=== PATIENT | female | born 1985 | race Caucasian/White ===

== ENCOUNTER 2023-06-15 02:50 | Emergency (ER) | payer OTHER, SELFPAY ==
[2023-06-15 02:56] VITALS: BP 137/79; PULSE 97; RESP 18; TEMP 36.2; O2SAT 98; BMI 30.7
--- NOTE | 2023-06-15 03:01 | ED_ITS ---
HPI - Abdominal Pain General Date Seen: 06/15/23 <Tyler Aponte - Last Filed: 06/16/23 09:49> Chief Complaint: Abdominal Pain <Tyler Aponte DO - Last Filed: 06/16/23 09:49> Stated Complaint: right side abdominal pain <Tyler Aponte - Last Filed: 06/16/23 09:49> Time Seen by Provider: 06/15/23 02:52 <Tyler Aponte - Last Filed: 06/16/23 09:49> Source: patient <Tyler Aponte - Last Filed: 06/16/23 09:49> Mode of arrival: ambulatory <Tyler Aponte - Last Filed: 06/16/23 09:49> Limitations: no limitations <Tyler Aponte - Last Filed: 06/16/23 09:49> History of Present Illness HPI narrative: Patient is a 38-year-old female with no pertinent medical problems presenting to emergency department for right-sided abdominal pain. She says this pain started few hours ago. She went to bed about 23:00 in no she is having this right-sided abdominal pain that was not going away. She notices it worse in the right lower quadrant but states it hurts throughout her right abdomen. She states she had pain like this 2 months ago and it also occurred overnight but was better by morning. She states last ate at about 20:30 and had no issues at that time. Has some mild nausea but no vomiting. Has had previous C-sections but no other abdominal surgery. Denies fevers, chills, chest pain, shortness of breath, diarrhea, constipation, lightheadedness, dizziness, d ysuria. Her last bowel movement was in the morning and she thinks it was normal. Did take ibuprofen for pain with improvement in her symptoms. No other concerns noted <Tyler Aponte - Last Filed: 06/16/23 09:49> Related Data Home Medications: Home Medications Medication Instructions Recorded Confirmed sertraline 25 mg tablet 25 mg PO DAILY 06/15/23 06/15/23 <Tyler Aponte - Last Filed: 06/16/23 09:49> Allergies/Adverse Reactions: Allergies Allergy/AdvReac Type Severity Reaction Status Date / Time No Known Drug Allergies Allergy Verified 06/15/23 03:03 <Tyler Aponte DO - Last Filed: 06/16/23 09:49> Review of Systems Status of ROS Reports: 10 or more systems reviewed and unremarkable except as noted in History and below <Tyler Aponte DO - Last Filed: 06/16/23 09:49> [facility] Medical History: Medical History No significant past medical history <Tyler Aponte DO - Last Filed: 06/16/23 09:49> Surgical History: Surgical History Hx of section ?Z98.891 - History of uterine scar from previous surgery (ICD-10) <Tyler Aponte DO - Last Filed: 06/16/23 09:49> Social History: Social History (Updated 06/15/23 @ 16:26 by Yue Alcocer MD) Narrative: 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 Smoking Status: Never smoker Second hand tobacco smoke exposure: No How often do you have a drink containing alcohol: never AUDIT-C Alcohol total score: 0 Non-prescribed substance use: denies use <Tyler Aponte DO - Last Filed: 06/16/23 09:49> Exam Narrative: Exam Narrative: Const: Well-nourished, Well-developed, in mild distress Eyes: PERRL, no conjunctival injection, and symmetrical lids HENT: Atraumatic external nose and ears. Moist mucous membranes. Neck: Symmetric, trachea midline, No thyromegaly. CVS: RRR, No murmurs or gallops. Peripheral pulses 2+ and equal in all extremities RESP: Unlabored respiratory effort. Clear to auscultation bilaterally. GI: Right lower quadrant tenderness, Nondistended, No rebound or guarding. MSK:Extremities w/o deformity, Normal Active ROM Skin: Warm, Dry. No rashes or lesions. Neuro: Normal Muscle tone, No focal neurological deficits. Psych: Awake, Alert, & Oriented x3. Appropriate mood and affect. <Tyler Aponte DO - Last Filed: 06/16/23 09:49> Const: Vital Signs, click to edit/add: Vital Signs - 24 hr 06/15/23 02:56 06/15/23 03:15 06/15/23 03:52 Temperature 97.1 F L 98.1 F Pulse Rate [Pulse Oximeter] 97 67 Respiratory Rate 18 18 Blood Pressure [Ri ght Upper Arm] 137/79 125/63 Pulse Oximetry 98 98 98 Oxygen Delivery Me thod Room Air Room Air 06/15/23 05:10 06/15/23 06:28 06/15/23 08:30 Temperature 98.1 F 98.1 F 98.3 F Pulse Rate [Pulse Oximeter] 71 66 62 Respiratory Rate 18 18 18 Blood Pressure [Ri ght Upper Arm] 119/79 113/68 110/68 Pulse Oximetry 98 98 99 Oxygen Delivery Me thod Room Air Room Air Room Air <Tyler Apnote DO - Last Filed: 06/16/23 09:49> Vital Signs, click to edit/add: Vital Signs - 24 hr 06/15/23 02:56 06/15/23 03:15 06/15/23 03:52 Temperature 97.1 F L 98.1 F Pulse Rate [Pulse Oximeter] 97 67 Respiratory Rate 18 18 Blood Pressure [Ri ght Upper Arm] 137/79 125/63 Pulse Oximetry 98 98 98 Oxygen Delivery Me thod Room Air Room Air 06/15/23 05:10 06/15/23 06:28 06/15/23 08:30 Temperature 98.1 F 98.1 F 98.3 F Pulse Rate [Pulse Oximeter] 71 66 62 Respiratory Rate 18 18 18 Blood Pressure [Ri ght Upper Arm] 119/79 113/68 110/68 Pulse Oximetry 98 98 99 Oxygen Delivery Me thod Room Air Room Air Room Air <Latisha Goddard MD - Last Filed: 06/15/23 10:32> Course Course ED Course: Patient signed out to me by Dr. Aponte. I spoke with Dr. Alcocer, who will come assess the patient and formulate a plan with her when she finishes her current case, probably around 9:30. Patient comfortable, declines the need for anything for pain. Per Dr. Alcocer patient will be discharged home, return to Same Day Surgery tomorrow AM 9:15. Return to the ER for significant worsening in the interim, high fevers, shaking chills, severe uncontrolled pain. <Latisha Goddard MD - Last Filed: 06/15/23 10:32> Vital Signs Vital signs: Initial Vital Signs Temperature 97.1 F L 06/15/23 02:56 Temperature Source Temporal Artery Scan 06/15/23 02:56 Pulse Rate 97 06/15/23 02:56 Respiratory Rate 18 06/15/23 02:56 Blood Pressure 137/79 06/15/23 02:56 Blood Pressure Mean 98 06/15/23 02:56 Blood Pressure Position Sitting 06/15/23 02:56 Pulse Oximetry 98 06/15/23 02:56 Oxygen Delivery Method Room Air 06/15/23 02:56 Vital Signs Temperature 97.1 F L 06/15/23 02:56 Pulse Rate 97 06/15/23 02:56 Respiratory Rate 18 06/15/23 02:56 Blood Pressure 137/79 06/15/23 02:56 Pulse Oximetry 98 06/15/23 02:56 Oxygen Delivery Method Room Air 06/15/23 02:56 Temperature 98.3 F 06/15/23 08:30 Pulse Rate 62 06/15/23 08:30 Respiratory Rate 18 06/15/23 08:30 Blood Pressure 110/68 06/15/23 08:30 Pulse Oximetry 99 06/15/23 08:30 Oxygen Delivery Method Room Air 06/15/23 08:30 <Tyler Aponte DO - Last Filed: 06/16/23 09:49> Initial Vital Signs Temperature 97.1 F L 06/15/23 02:56 Temperature Source Temporal Artery Scan 06/15/23 02:56 Pulse Rate 97 06/15/23 02:56 Respiratory Rate 18 06/15/23 02:56 Blood Pressure 137/79 06/15/23 02:56 Blood Pressure Mean 98 06/15/23 02:56 Blood Pressure Position Sitting 06/15/23 02:56 Pulse Oximetry 98 06/15/23 02:56 Oxygen Delivery Method Room Air 06/15/23 02:56 Vital Signs Temperature 97.1 F L 06/15/23 02:56 Pulse Rate 97 06/15/23 02:56 Respiratory Rate 18 06/15/23 02:56 Blood Pressure 137/79 06/15/23 02:56 Pulse Oximetry 98 06/15/23 02:56 Oxygen Delivery Method Room Air 06/15/23 02:56 Temperature 98.3 F 06/15/23 08:30 Pulse Rate 62 06/15/23 08:30 Respiratory Rate 18 06/15/23 08:30 Blood Pressure 110/68 06/15/23 08:30 Pulse Oximetry 99 06/15/23 08:30 Oxygen Delivery Method Room Air 06/15/23 08:30 <Latisha Goddard MD - Last Filed: 06/15/23 10:32> Medications Administered Medications: Discontinued Medications Generic Name Dose Route Start Last Admin Trade Name Freq PRN Reason Stop Dose Admin Metronidazole 500 mg in 100 mls @ 100 mls/hr 06/15/23 04:12 06/15/23 06:31 Metronidazole IVPB 06/15/23 05:11 Infused ONCE ONE Infusion Ceftriaxone Sodium 1 gm/ 100 mls @ 200 mls/hr 06/15/23 04:15 06/15/23 04:50 Sodium Chloride IVPB Infused Q24H MICHELLE Infusion Morphine Sulfate 4 mg 06/15/23 03:06 06/15/23 03:14 Morphine 4 Mg/Ml Inj IVP 06/15/23 03:07 4 mg ONCE ONE Administration Ondansetron HCl 4 mg 06/15/23 03:29 06/15/23 03:12 Ondansetron 2 Mg/Ml Inj IVP 06/15/23 03:30 4 mg ONCE ONE Administration <Tyler Aponte DO - Last Filed: 06/16/23 09:49> Discontinued Medications Generic Name Dose Route Start Last Admin Trade Name Freq PRN Reason Stop Dose Admin Metronidazole 500 mg in 100 mls @ 100 mls/hr 06/15/23 04:12 06/15/23 06:31 Metronidazole IVPB 06/15/23 05:11 Infused ONCE ONE Infusion Ceftriaxone Sodium 1 gm/ 100 mls @ 200 mls/hr 06/15/23 04:15 06/15/23 04:50 Sodium Chloride IVPB Infused Q24H MICHELLE Infusion Morphine Sulfate 4 mg 06/15/23 03:06 06/15/23 03:14 Morphine 4 Mg/Ml Inj IVP 06/15/23 03:07 4 mg ONCE ONE Administration Ondansetron HCl 4 mg 06/15/23 03:29 06/15/23 03:12 Ondansetron 2 Mg/Ml Inj IVP 06/15/23 03:30 4 mg ONCE ONE Administration <Latisha Goddard MD - Last Filed: 06/15/23 10:32> MDM - Abdominal Pain MDM Narrative Medical decision making narrative: Patient is a 38-year-old female presenting for right-sided abdominal pain. No shortness seems to be in the right lower quadrant I am concerned about appendicitis right now. She does state her entire abdomen is sore though so there is concern for SBO considered she has had a before, gallbladder disease, pancreatitis, viral gastroenteritis. Will order CBC, CMP, lipase, urinalysis, urine test. We will do CT scan with IV contrast to better evaluate this pain. She does have a pulse of 97 which is within SIRS criteria and will preemptively order a lactate. Lab work all returned showing no concerning abnormalities. Her symptoms have improved at this time. CT scan returned showing concerns for cholecystitis. Due to the relatively low specificity and sensitivity of CT scan for cholecystitis we will order an ultrasound. Ultrasound will be done at 06:30. P ana is otherwise appearing well at this time and can wait till then. They would not do surgery sooner any ways. Will be given a round of Flagyl and Rocephin for possible infection in the meantime. She is agreeable to wait for the ultrasound. Gallbladder ultrasound shows cholelithiasis with some mild gallbladder wall thickening. <Tyler Aponte DO - Last Filed: 06/16/23 09:49> Lab Data Labs: Lab Results 06/15/23 06/15/23 Range/Units 02:56 03:00 WBC 11.58 H (4.50-11.00) K/uL RBC 4.64 (4.00-5.20) m/uL Hgb 13.4 (12.0-16.0) gm/dL Hct 40.7 (33.0-51.0) % MCV 88 (80-100) fL MCH 29 (26-34) pg MCHC 33 (32-36) gm/dL RDW Coeff of Deanna 12.6 (11.5-15.5) % Plt Count 400 (140-440) K/uL Neut % (Auto) 65.3 (42.0-72.0) % Lymph % (Auto) 22.7 (20-44) % Benson % (Auto) 9.8 (0.0-11.0) % Eos % (Auto) 1.6 (0.0-7.0) % Baso % (Auto) 0.3 (0.0-3.0) % Neut # (Auto) 7.60 H (1.7-7.0) K/uL Lymph # (Auto) 2.60 (0.90-2.90) K/uL Benson # (Auto) 1.10 H (0.00-0.90) K/UL Eos # (Auto) 0.20 (0.00-0.50) K/uL Baso # (Auto) 0.00 (0.00-0.30) K/uL Abs Immat Gran (auto) 0.00 (0.00-0.30) K/uL Imm/Tot Granulo (auto) 0.3 % Sodium 139 (135-149) mmol/L Potassium 3.7 (3.6-5.1) mmol/L Chloride 103 (96-114) mmol/L Carbon Dioxide 25 (20-32) mmol/L Anion Gap 11 (7-15) mEq/L BUN 18 (5-24) mg/dL Creatinine 0.8 (0.5-1.5) mg/dL Estimated Creat Clear 88.38 Estimated GFR 96 ml/min Glucose 102 (60-115) mg/dL Lactate 0.9 (0.5-1.9) mmol/L Calcium 10.1 (8.4-10.6) mg/dL Total Bilirubin 0.5 (0.1-1.5) mg/dL AST 24 (12-35) U/L ALT 34 (4-35) U/L Alkaline Phosphatase 64 (40-150) U/L Total Protein 8.2 (6.0-8.3) g/dL Albumin 4.7 (3.3-5.0) g/dL Lipase 183 (23-300) U/L Urine Color Yellow (Yellow) Urine Appearance Cloudy A (Clear) Urine pH 5.5 (5.0-8.5) Ur Specific [place] >= 1.030 (1.000-1.030) Urine Protein Negative (Negative) Urine Glucose (UA) Negative (Negative) Urine Ketones Negative (Negative) Urine Blood Negative (Negative) Urine Nitrite Negative (Negative) Urine Bilirubin Negative (Negative) Urine Urobilinogen 0.2 (0.2-1.0) Ur Leukocyte Esterase Trace A (Negative) Urine RBC 0-2 (0-2) Urine WBC 5-10 A (0-5) Ur Squamous Epith Cells Moderate A (None-Few) Urine Bacteria Few A (None) Urine HCG, Qual Negative (Negative) <Tyler Aponte, DO - Last Filed: 06/16/23 09:49> Lab Results 06/15/23 06/15/23 Range/Units 02:56 03:00 WBC 11.58 H (4.50-11.00) K/uL RBC 4.64 (4.00-5.20) m/uL Hgb 13.4 (12.0-16.0) gm/dL Hct 40.7 (33.0-51.0) % MCV 88 (80-100) fL MCH 29 (26-34) pg MCHC 33 (32-36) gm/dL RDW Coeff of Deanna 12.6 (11.5-15.5) % Plt Count 400 (140-440) K/uL Neut % (Auto) 65.3 (42.0-72.0) % Lymph % (Auto) 22.7 (20-44) % Benson % (Auto) 9.8 (0.0-11.0) % Eos % (Auto) 1.6 (0.0-7.0) % Baso % (Auto) 0.3 (0.0-3.0) % Neut # (Auto) 7.60 H (1.7-7.0) K/uL Lymph # (Auto) 2.60 (0.90-2.90) K/uL Benson # (Auto) 1.10 H (0.00-0.90) K/UL Eos # (Auto) 0.20 (0.00-0.50) K/uL Baso # (Auto) 0.00 (0.00-0.30) K/uL Abs Immat Gran (auto) 0.00 (0.00-0.30) K/uL Imm/Tot Granulo (auto) 0.3 % Sodium 139 (135-149) mmol/L Potassium 3.7 (3.6-5.1) mmol/L Chloride 103 (96-114) mmol/L Carbon Dioxide 25 (20-32) mmol/L Anion Gap 11 (7-15) mEq/L BUN 18 (5-24) mg/dL Creatinine 0.8 (0.5-1.5) mg/dL Estimated Creat Clear 88.38 Estimated GFR 96 ml/min Glucose 102 (60-115) mg/dL Lactate 0.9 (0.5-1.9) mmol/L Calcium 10.1 (8.4-10.6) mg/dL Total Bilirubin 0.5 (0.1-1.5) mg/dL AST 24 (12-35) U/L ALT 34 (4-35) U/L Alkaline Phosphatase 64 (40-150) U/L Total Protein 8.2 (6.0-8.3) g/dL Albumin 4.7 (3.3-5.0) g/dL Lipase 183 (23-300) U/L Urine Color Yellow (Yellow) Urine Appearance Cloudy A (Clear) Urine pH 5.5 (5.0-8.5) Ur Specific [place] >= 1.030 (1.000-1.030) Urine Protein Negative (Negative) Urine Glucose (UA) Negative (Negative) Urine Ketones Negative (Negative) Urine Blood Negative (Negative) Urine Nitrite Negative (Negative) Urine Bilirubin Negative (Negative) Urine Urobilinogen 0.2 (0.2-1.0) Ur Leukocyte Esterase Trace A (Negative) Urine RBC 0-2 (0-2) Urine WBC 5-10 A (0-5) Ur Squamous Epith Cells Moderate A (None-Few) Urine Bacteria Few A (None) Urine HCG, Qual Negative (Negative) <Latisha Goddard MD - Last Filed: 06/15/23 10:32> Imaging Data CT scan abdomen and pelvis: Radiologist's impression: 1. Appearance of the gallbladder suspicious for acute cholecystitis. Minimal central intrahepatic biliary ductal dilatation. The distal common bile duct is not significantly dilated. 2. Several small uterine fibroids. Physiologic ovarian cysts. Please note that all CT scans at this facility use dose modulation, iterative reconstruction, and/or weight-based dosing when appropriate to reduce radiation dose to as low as reasonably achievable. Dictated by Caren Garza MD @ 06/15/2023 4:07:34 AM <Tyler Aponte DO - Last Filed: 06/16/23 09:49> US - abdomen: Radiologist's impression: 1. Cholelithiasis with mild gallbladder wall thickening. Differential diagnosis for gallbladder wall thickening includes cholecystitis, hypoproteinemia and underlying liver disease. 2. Normal diameter common duct. Dictated by Urban Padilla MD @ 06/15/2023 7:12:56 AM <Tyler Aponte DO - Last Filed: 06/16/23 09:49> Discharge Plan Discharge Clinical Impression: Cholelithiasis <Tyler Aponte DO - Last Filed: 06/16/23 09:49> Patient Disposition: Home, Self-Care <Tyler Aponte DO - Last Filed: 06/16/23 09:49> Condition: Improved <Tyler Aponte DO - Last Filed: 06/16/23 09:49> Instructions: Gallstones (ED) <Tyler Aponte DO - Last Filed: 06/16/23 09:49> Additional Instructions: Return tomorrow to same-day surgery at 9:15 a.m. NPO after midnight. Take Tylenol and ibuprofen for pain. If in the interim you have severe symptoms, high fevers, shaking chills, severe uncontrolled pain, return to the emergency department. <Tyler Aponte DO - Last Filed: 06/16/23 09:49> Prescriptions: No Action sertraline 25 mg tablet 25 mg PO DAILY <Tyler Aponte DO - Last Filed: 06/16/23 09:49> Follow Up/Referrals: Romina Ribeiro MD [Primary Care Provider] - <Tyler Aponte DO - Last Filed: 06/16/23 09:49> Stand Alone Forms: [employer] Info Instructions <Tyler Aponte DO - Last Filed: 06/16/23 09:49>
--- NOTE | 2023-06-15 03:06 | CT_ITS ---
Patient: DESMOND PENG Facility:?[facility] Patient ID:?[id number] Site Patient ID:?[id number]. Site :?[id number] Study:?CT-Abdomen/Pelvis [id number] contrast-06/15/2023 3:53:59 AM Ordering Physician:Nimo Final Report: INDICATION: Right-sided abdominal pain TECHNIQUE: : CT of the abdomen and pelvis with IV contrast. Multiplanar reformats are included. Contrast: 93 mL Isovue 370 COMPARISON: None FINDINGS: : Lung bases: Punctate calcified granuloma left lower lobe. Liver: Normal. No masses. Gallbladder and biliary tree: The gallbladder is distended with mild circumferential gallbladder wall thickening. There is layering sludge and stones in the gallbladder lumen. The pericholecystic soft tissues are normal. Mild intrahepatic biliary ductal dilatation at the center of the liver. Normal caliber extrahepatic bile duct with normal smooth tapering towards the ampulla.. Pancreas: Normal. Spleen: Normal size. There is a 1.5 centimeter hypoenhancing lesion along the medial anterior spleen, probably a cyst. Likely of no clinical significance. Adrenal glands: Normal. No nodules. Kidneys and bladder: Normal size and position. No cyst or mass. No calculi. No urinary tract dilation. The urinary bladder is normal. GI: Normal. No dilated segments. No inflamed bowel. Small stool burden. The appendix is normal. Vessels: Normal. Peritoneum: No free fluid. Lymph nodes: No adenopathy. Pelvis: There are few small uterine fibroids. Summary intramural in summer subserosal. The largest measures 1.5 centimeters. There are physiologic bilateral ovarian simple cysts. No adjacent inflammation or fluid.. Bones: No fractures. No focal bone lesions. Normal for age. IMPRESSION: 1. Appearance of the gallbladder suspicious for acute cholecystitis. Minimal central intrahepatic biliary ductal dilatation. The distal common bile duct is not significantly dilated. 2. Several small uterine fibroids. Physiologic ovarian cysts. Please note that all CT scans at this facility use dose modulation, iterative reconstruction, and/or weight-based dosing when appropriate to reduce radiation dose to as low as reasonably achievable. Dictated by Caren Garza MD @ 06/15/2023 4:07:34 AM Signed by:?Caren Garza MD @06/15/2023 4:07:34 AM (Electronic Signature)
[2023-06-15 03:10] LABS: Lactate* 0.9 mmol/L (0.5-1.9)
[2023-06-15 03:12] LABS: Basophils Percent Auto 0.3 % (0.0-3.0); Eosinophils Percent Auto 1.6 % (0.0-7.0); Hematocrit 40.7 % (33.0-51.0); Hemoglobin* 13.4 gm/dL (12.0-16.0); Immature Granulocytes Pct Auto 0.3 %; Lymphocytes Percent Auto 22.7 % (20-44); Mean Corpuscular HGB Conc 33 gm/dL (32-36); Mean Corpuscular Hemoglobin 29 pg (26-34); Mean Corpuscular Volume 88 fL (80-100); Monocytes Percent Auto 9.8 % (0.0-11.0); Neutrophils Percent Auto 65.3 % (42.0-72.0); Platelet Count* 400 K/uL (140-440); RDW Coefficient of Variation % 12.6 % (11.5-15.5); Red Blood Count 4.64 m/uL (4.00-5.20); White Blood Count* 11.58 K/uL (4.50-11.00)
[2023-06-15] MEDS: ONDANSETRON 2 MG/ML inj 4 MG IVP (03:12)
[2023-06-15 03:14] LABS: Appearance Urine Cloudy (Clear); Bilirubin Urine Negative (Negative); Blood Urine Negative (Negative); Color Urine Yellow (Yellow); Glucose Urine Negative (Negative); Ketones Urine Negative (Negative); Leukocyte Esterase Urine Trace (Negative); Nitrite Urine Negative (Negative); Protein Urine Negative (Negative); Specific Gravity Urine >= 1.030 (1.000-1.030); Urobilinogen Urine 0.2 (0.2-1.0); pH Urine 5.5 (5.0-8.5)
[2023-06-15] MEDS: MORPHINE 4 MG/ML INJ IVP (03:14)
[2023-06-15 03:15] VITALS: O2SAT 98
[2023-06-15 03:18] LABS: Slide Review Reflex No
[2023-06-15 03:28] LABS: Ur HCG Qualitative* Negative (Negative)
[2023-06-15 03:29] LABS: Chloride* 103 mmol/L (96-114)
[2023-06-15 03:30] LABS: Albumin* 4.7 g/dL (3.3-5.0); Sodium* 139 mmol/L (135-149)
[2023-06-15 03:31] LABS: Potassium* 3.7 mmol/L (3.6-5.1)
[2023-06-15 03:32] LABS: RBC Urine 0-2 (0-2)
[2023-06-15 03:33] LABS: Alanine Aminotransferase* 34 U/L (4-35); Alkaline Phosphatase* 64 U/L (40-150); Anion Gap 11 mEq/L (7-15); Aspartate Amino Transferase* 24 U/L (12-35); Bilirubin Total* 0.5 mg/dL (0.1-1.5); Blood Urea Nitrogen* 18 mg/dL (5-24); Calcium* 10.1 mg/dL (8.4-10.6); Carbon Dioxide* 25 mmol/L (20-32); Creatinine* 0.8 mg/dL (0.5-1.5); Est. Creatinine Clearance* 88.38; Estimated Glomerular Filt Rate 96 ml/min; Glucose* 102 mg/dL (60-115); Lipase* 183 U/L (23-300); Total Protein* 8.2 g/dL (6.0-8.3)
[2023-06-15 03:33] LABS: Bacteria Urine Few; Squamous Epithelial Cell Urine Moderate (None-Few)
[2023-06-15 03:52] VITALS: BP 125/63; PULSE 67; RESP 18; TEMP 36.7; O2SAT 98
--- NOTE | 2023-06-15 04:09 | US_ITS ---
Patient: DESMOND PENG Facility:?[facility] Patient ID:?[id number] Site Patient ID:?[id number] Site :?[id number] Study:?US-Abdomen GB-06/15/2023 7:07:07 AM Ordering Physician:?ED Final Report: Indication: Right upper quadrant abdomen pain TECHNIQUE: Ultrasound abdomen limited. Sonographic images of the right upper quadrant were obtained using angeles-scale and color Doppler images. Comparison: Abdomen and pelvis CT 06/15/2023 FINDINGS: Gallbladder: Multiple mobile gallstones with mild gallbladder wall thickening at 4 millimeters. Negative sonographic Amador`s sign. No pericholecystic fluid. Common bile duct: 5 mm. Impression: 1. Cholelithiasis with mild gallbladder wall thickening. Differential diagnosis for gallbladder wall thickening includes cholecystitis, hypoproteinemia and underlying liver disease. 2. Normal diameter common duct. Dictated by Urban Padilla MD @ 06/15/2023 7:12:56 AM Signed by:?Urban Padilla MD @06/15/2023 7:12:56 AM (Electronic Signature)
[2023-06-15] MEDS: cefTRIAXone 1 GM in 0.9 % SODIUM CHLORIDE Mini-bag 100 ML IVPB (04:22)
[2023-06-15] MEDS: metroNIDAZOLE 500 MG/100 ML PIGGYBACK 100 MG IVPB (04:49)
[2023-06-15 05:10] VITALS: BP 119/79; PULSE 71; RESP 18; TEMP 36.7; O2SAT 98
[2023-06-15 06:28] VITALS: BP 113/68; PULSE 66; RESP 18; TEMP 36.7; O2SAT 98
[2023-06-15 08:30] VITALS: BP 110/68; PULSE 62; RESP 18; TEMP 36.8; O2SAT 99
--- NOTE | 2023-06-15 09:47 | P.GSHP_ITS ---
History of Present Illness History of Present Illness Date Seen: 06/15/23 Chief complaint: right side abdominal pain Narrative: Ricarda Agudelo is a 38 year old female who presented to the emergency department overnight with severe abdominal pain. She states that this woke her up at 1:00 a.m.. She states she felt somewhat unwell around 11:00 p.m. and went to bed. Around 1:00 a.m. she woke up with right upper quadrant pain. It was very severe and became bad enough that at 2:00 a.m. in the morning she felt she needed to come to the emergency department. She had some nausea on her way to the emergency room but was otherwise has not had any nausea or vomiting. She does have increased heartburn symptoms with this. She has not had any change in bowel habits. No fevers. She was short of breath and having epigastric chest pain in the car on the way to the emergency department. Morphine made the pain better and she is still sore though her pain is improved. She states 2 months ago she had something similar. But it went away on its own. 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 Smoking Status: Never smoker Second hand tobacco smoke exposure: No How often do you have a drink containing alcohol: never AUDIT-C Alcohol total score: 0 Non-prescribed substance use: denies use Meds Home Medications and Allergies Home Medications Medication Instructions Recorded Confirmed Type sertraline 25 mg tablet 25 mg PO DAILY 06/15/23 06/15/23 History Allergies Allergy/AdvReac Type Severity Reaction Status Date / Time No Known Drug Allergies Allergy Verified 06/15/23 03:03 Exam Narrative: Exam Narrative: General appearance: Alert, cooperative, and in no distress Eyes: PERRLA, eye lids clear, and sclera white HENT Head: Normocephalic Ears: External ears normal Pulmonary: Clear to auscultation bilaterally Cardiovascular Heart: Regular rate and rhythm Extremities: warm and well perfused Gastrointestinal Abdominal: No upper abdominal scars. Abdomen is protuberant. She is tender in the right mid abdomen. There is some guarding. There is no tender ness reverse quadrant. Musculoskeletal: Extremities: Upper: Both upper extremities have normal joint range of motion and intact strength. Lower: Both lower extremities have normal joint range of motion and intact strength. Skin: Normal skin color, texture, and turgor. Neurologic: No focal deficits Psychiatric: Alert, oriented, cooperative, normal affect. Const: Vital Signs, click to edit/add: Vital Signs - 24 hr 06/15/23 02:56 06/15/23 03:15 06/15/23 03:52 Temperature 97.1 F L 98.1 F Pulse Rate [Pulse Oximeter] 97 67 Respiratory Rate 18 18 Blood Pressure [Ri ght Upper Arm] 137/79 125/63 Pulse Oximetry 98 98 98 Oxygen Delivery Me thod Room Air Room Air 06/15/23 05:10 06/15/23 06:28 Temperature 98.1 F 98.1 F Pulse Rate [Pulse Oximeter] 71 66 Respiratory Rate 18 18 Blood Pressure [Ri ght Upper Arm] 119/79 113/68 Pulse Oximetry 98 98 Oxygen Delivery Me thod Room Air Room Air Results Results Labs: White blood cell count 11.5 Electrolytes and LFTs within normal limits. Urine negative Abdomen CT scan report/results: report reviewed and image reviewed Abdominal ultrasound report/results: report reviewed and image reviewed Additional studies: CT abdomen pelvis done 06/15/23: Patient: RICARDA AGUDELO Facility: [facility] Site . Site : 1985 Study: CT-Abdomen/Pelvis [id number] contrast-06/15/2023 3:53:59 AM Ordering Physician: Fadi Final Report: INDICATION: Right-sided abdominal pain TECHNIQUE: : CT of the abdomen and pelvis with IV contrast. Multiplanar reformats are included. Contrast: 93 mL Isovue 370 COMPARISON: None FINDINGS: : Lung bases: Punctate calcified granuloma left lower lobe. Liver: Normal. No masses. Gallbladder and biliary tree: The gallbladder is distended with mild circumferential gallbladder wall thickening. There is layering sludge and stones in the gallbladder lumen. The pericholecystic soft tissues are normal. Mild intrahepatic biliary ductal dilatation at the center of the liver. Normal caliber extrahepatic bile duct with normal smooth tapering towards the ampulla.. Pancreas: Normal. Spleen: Normal size. There is a 1.5 centimeter hypoenhancing lesion along the medial anterior spleen, probably a cyst. Likely of no clinical significance. Adrenal glands: Normal. No nodules. Kidneys and bladder: Normal size and position. No cyst or mass. No calculi. No urinary tract dilation. The urinary bladder is normal. GI: Normal. No dilated segments. No inflamed bowel. Small stool burden. The appendix is normal. Vessels: Normal. Peritoneum: No free fluid. Lymph nodes: No adenopathy. Pelvis: There are few small uterine fibroids. Summary intramural in summer subserosal. The largest measures 1.5 centimeters. There are physiologic bilateral ovarian simple cysts. No adjacent inflammation or fluid.. Bones: No fractures. No focal bone lesions. Normal for age. IMPRESSION: 1. Appearance of the gallbladder suspicious for acute cholecystitis. Minimal central intrahepatic biliary ductal dilatation. The distal common bile duct is not significantly dilated. 2. Several small uterine fibroids. Physiologic ovarian cysts. Ultrasound of the abdomen done 06/15/23: Patient: RICARDA AGUDELO Facility: [facility] Site Site : 1985 Study: US-Abdomen -06/15/2023 7:07:07 AM Ordering Physician: ED Final Report: Indication: Right upper quadrant abdomen pain TECHNIQUE: Ultrasound abdomen limited. Sonographic images of the right upper quadrant were obtained using angeles-scale and color Doppler images. Comparison: Abdomen and pelvis CT 06/15/2023 FINDINGS: Gallbladder: Multiple mobile gallstones with mild gallbladder wall thickening at 4 millimeters. Negative sonographic Amador`s sign. No pericholecystic fluid. Common bile duct: 5 mm. Impression: 1. Cholelithiasis with mild gallbladder wall thickening. Differential diagnosis for gallbladder wall thickening includes cholecystitis, hypoproteinemia and underlying liver disease. 2. Normal diameter common duct. Progress Note:A&P Assessment and plan (1) Cholelithiasis: Status: Acute (2) Cholecystitis: Status: Acute Plan The patient is a 38-year-old female with likely early acute cholecystitis. I explained that the treatment for this is laparoscopic cholecystectomy. We discussed the procedure as well as risks and benefits of surgery which include bleeding, infection, bile leak, conversion to open or injury to other structures, specifically the common bile duct. We also discussed recovery. She is feeling better and because of OR availability today, we discussed discharge home and have her return in the morning for surgery as an outpatient. She is agreeable with this. I recommended that if she develops worsening pain, nausea or vomiting she could come walk to be admitted. She will be NPO at midnight we will plan on cholecystectomy tomorrow morning.
== END 2023-06-15 10:18 | disposition home or self-care (01) ==
PROVIDERS: Emergency Provider Student in an Organized Health Care Education/Training Program; PCP Family Medicine
DX: K80.20 Calculus of gallbladder without cholecystitis without obstruction (principal)
CPT/HCPCS: 36415; 74177; 76705; 80053; 81001; 81025; 83605; 83690; 85025; 87086; 94761; 96365; 96366; 96375; 99283; 99284; J0696; J1836; J2270; J2405; Q9967

== ENCOUNTER 2023-06-16 09:17 | Day surgery (SDC) | payer OTHER, SELFPAY ==
[2023-06-16] VITALS (12 sets, daily range): BP systolic 94–127; BP diastolic 50–85; PULSE 51–73; RESP 12–16; TEMP 36.1–36.8; O2SAT 93–98; BMI 30.7
[2023-06-16] MEDS: LACTATED RINGERS 1000 ML 1,000 ML 100 ML IV (10:11)
[2023-06-16] MEDS: SODIUM CHLORIDE 0.9 % (FLUSH) 10 ML SYRINGE IVF (10:11)
[2023-06-16] MEDS: CEFAZOLIN 2 GM INJ IVP (10:28)
[2023-06-16] MEDS: BUPIVACAINE 0.25% 30 ML INJECTION (11:36)
--- NOTE | 2023-06-16 11:40 | W.ANESCHARGE ---
Anesthesia Charges Start Date/Time Anesthesia Start Date: 06/16/23 Anesthesia Start Time: 10:15 Stop Date/Time Anesthesia Stop Date: 06/16/23 Anesthesia Stop Time: 11:53
--- NOTE | 2023-06-16 11:46 | P.GSOP_ITS ---
Operative Note Date of procedure: 06/16/23 Pre-op diagnosis: 1. Cholecystitis Post-op diagnosis: 1. Same 2. Dilated appendix Type of Procedure: 1. Laparoscopic cholecystectomy 2. Laparoscopic appendectomy Indications: The patient is a 38-year-old female who presented to the emergency department with right-sided pain which woke her up in the middle the night. Workup revealed gallstones and mild gallbladder wall thickening. She did have an elevated white blood cell count. We discussed cholecystectomy and planned on proceeding with this the following day. Interestingly, on exam most of her pain was in the right lower quadrant. We had discussed at the end of our visit that I would look at the appendix and evaluate to see if it appeared to be dilated. The patient stated that she wished to be removed that was the case. Procedure Description: After discussing the risks and benefits of the procedure, the patient signed informed consent.? The operative site was marked and the patient was brought to the operating room and placed on the operating table in supine position.? Care w as taken to pad the patient's pressure points.?? The patient was then intubated by anesthesia.?? The operative site was then prepped and draped in the usual sterile fashion.? A time-out was then performed. Entrance to the abdomen was gained via a 5 mm Visiport in the left upper quadrant. The abdomen was insufflated and briefly surveyed for signs of injury. There was none. A 10 mm umbilical port was placed as well as 2 working ports along the right costal margin, all under direct vision. The patient was then placed in reverse Trendelenburg position with the right side up. The gallbladder fundus was grasped and retracted cephalad. A small amount of dissection was needed to free omental adhesions from the gallbladder. The infundibulum was grasped. A combination of hook cautery and blunt dissection was used to carefully dissect out the cystic duct and artery until they could clearly be seen entering the gallbladder without any intervening structures. The gallbladder was dissected off the cystic plate to achieve the critical view. Once this was achieved the cystic duct and artery were each clipped with 2 clips proximally and 1 clip distally and transected with the scissors. The gallbladder was then taken off of the liver bed and removed from the abdomen using an Endo- Catch bag. The gallbladder bed was surveyed for hemostasis which appeared adequate. I then placed the patient into Trendelenburg position and examined the right lower quadrant. The appendix was noted. It actually did appear to be somewhat dilated and firm at the tip. There was no purulence. Because I had not obtained written consent from the patient prior to the surgery, only verbal consent I did call the patient's intraoperatively and he agreed to appendectomy. I upsized the umbilical port to a 12 mm port. I then grasped the appendix and created a mesenteric window. Through this a purple load DARIUS stapler was passed. The base of the appendix was divided. The mesoappendix was then divided using a gold load DARIUS stapler. A small bleeding vessel on the staple line of the cecum was clipped. Hemostasis appeared excellent. The appendix was removed from the abdomen again using an Endo-Catch bag. Once this was done, the ports were removed and the abdomen desufflated. The umbilical port fascia was closed with 0 Vicryl. The skin was closed with absorbable subcuticular suture. Instrument sponge and needle counts were correct at the end of the case. The patient was then woken and transferred to the PACU in stable condition. ? The patient tolerated the procedure well. Findings: 1. Gallstones. Mild inflammation and adhesions about the gallbladder. 2. Mildly inflamed-appearing and firm appendiceal tip without purulence. Anesthesia: GETA Surgeon: Yue Alcocer MD Estimated blood loss (mL): 5 Specimen: Appendix and Gallbladder Condition: stable Disposition: PACU
--- NOTE | 2023-06-16 11:52 | W.ANESCHARGE ---
Anesthesia Charges Start Date/Time Anesthesia Start Date: 06/16/23 Anesthesia Start Time: 10:15 Stop Date/Time Anesthesia Stop Date: 06/16/23 Anesthesia Stop Time: 11:53
--- NOTE | 2023-06-16 12:20 | SUR.PHASEI ---
patient meets pacu d/c criteria
--- NOTE | 2023-06-16 12:44 | SUR.PHASEII ---
Patient complaint of mild nausea. Provided Q-easy essential oil patch.
[2023-06-16] MEDS: METOCLOPRAMIDE HCL 5 MG/ML INJ 10 MG IVP (13:11)
== END 2023-06-16 13:55 | disposition home or self-care (01) ==
PROVIDERS: PCP Family Medicine; Visit Provider Surgery
PROC: 0FT44ZZ Resection of Gallbladder, Percutaneous Endoscopic Approach (ICD-10-PCS; CPT 47562; principal; 2023-06-16 10:30)
PROC: 0DTJ4ZZ Resection of Appendix, Percutaneous Endoscopic Approach (ICD-10-PCS; CPT 44970; 2023-06-16 10:30)
DX: K80.10 Calculus of gallbladder with chronic cholecystitis without obstruction (principal); K38.9 Disease of appendix, unspecified
CPT/HCPCS: 47562; 44970; 00790; 88304; J0330; J0665; J0690; J1100; J1885; J2405; J2704; J2765; J3010; J7120